=== PATIENT | male | born 1965 | race Caucasian/White ===

== ENCOUNTER 2016-11-13 08:34 | Emergency (ER) | payer BC ==
[~2016-11-13] VITALS: Ht 167.6 cm; Wt 86.0 kg
[2016-11-13 08:35] VITALS: BP 134/91
[2016-11-13] MEDS ORDERED: DIPH,PERTUSS(ACELL),TET VAC/PF 0.5 ML IM-VACC ONE ×2 (09:00→09:06)
[2016-11-13] MEDS ORDERED: CEPHALEXIN 500 MG CAPSULE ONE (09:17)
[2016-11-13] MEDS ORDERED: BACITRACIN ZINC OINT 500U/GM, 0.9 GM ONE ×2 (09:26→09:52)
[2016-11-13] MEDS ORDERED: LIDOCAINE 1%-EPI 1:100K, 20ML SQ ONE (09:30)
[2016-11-13] MEDS ORDERED: CEPHALEXIN 500 MG CAPSULE PO SCH (09:30)
[2016-11-13] MEDS ORDERED: LIDOCAINE 1%-EPI 1:100K, 30ML ONE (09:33)
== END 2016-11-13 10:31 | disposition home or self-care (01) ==
LOC: ED 10:10
DX: S92.912B Unspecified fracture of left toe(s), initial encounter for open fracture (principal); S91.312A Laceration without foreign body, left foot, initial encounter; I25.2 Old myocardial infarction; W22.8XXA Striking against or struck by other objects, initial encounter; Y93.89 Activity, other specified; Y92.69 Other specified industrial and construction area as the place of occurrence of the external cause; Y99.8 Other external cause status
CPT/HCPCS: 29515; 90471; 90715